=== PATIENT | male | born 1970 | race Caucasian/White ===

== ENCOUNTER → 2017-06-26 | Outpatient (CLI) | payer MEDICAID | LOC: BMCIMAGING 10:03 | PROVIDERS: ATTEND Internal Medicine Endocrinology, Diabetes & Metabolism | DX: M25.742 Osteophyte, left hand (principal) ==

== ENCOUNTER → 2017-08-04 | Outpatient (CLI) | payer MEDICAID | LOC: FIMAGING 14:02 | PROVIDERS: ATTEND Orthopaedic Surgery Hand Surgery | DX: M79.642 Pain in left hand (principal); M25.442 Effusion, left hand; R93.7 Abnormal findings on diagnostic imaging of other parts of musculoskeletal system ==

== ENCOUNTER → 2018-05-07 | Outpatient (CLI) | payer MEDICAID | LOC: BMCIMAGING 13:32 | PROVIDERS: ATTEND Internal Medicine Rheumatology | DX: M79.642 Pain in left hand (principal) ==